=== PATIENT | female | born 1995 | race Caucasian/White ===

== ENCOUNTER 2023-04-25 20:40 | Emergency (ER) | payer BC ==
[2023-04-25] MEDS ORDERED: Loratadine 10 MG TAB ONE (21:34)
[2023-04-25] MEDS ORDERED: predniSONE 20 MG TAB ONE (21:34)
== END 2023-04-25 21:47 | disposition home or self-care (01) ==
LOC: MADERS 20:40
DX: L50.0 Allergic urticaria (principal)
CPT/HCPCS: 99282; J7512